=== PATIENT | male | born 1950 | race Caucasian/White ===

== ENCOUNTER 2017-01-23 22:29 | Observation (INO) | payer MEDICARE ==
[2017-01-23] MEDS ORDERED: CIPROFLOXACIN LACTATE/D5W 400 MG/200 ML BAG IVPB ONE (23:02)
--- NOTE | 2017-01-23 23:05 | Emergency Department Record ---
History of Present Illness - General Chief complaint: ENT Stated complaint: RT EAR PAIN/THROBBING Time Seen by Provider: 01/23/17 22:46 Source: Patient Mode of Arrival: Ambulatory Limitations: No limitations - History of Present Illness Initial comments: pt has had ear pain for 3 days which has worsened and has now spread to the face and head. he has swelling and decreased hearing. MD complaint: Ear pain Onset/Timin -: Days(s) Location: R ear Severity scale (1-10): 6 Quality: Aching, Sharp Consistency: Constant Improves with: None Worsens with: Other Associated Symptoms: Discharge from ear - Related Data Home Medications Medication Instructions Recorded Confirmed Last Taken No Home Med [NO HOME MEDS] 01/23/17 01/23/17 Unknown Allergies Allergy/AdvReac Type Severity Reaction Status Date / Time No Known Drug Allergies Allergy Verified 01/23/17 22:40 Travel Screening - Travel/Exposure Within Last 30 Days Have you traveled within the last 30 days?: No Review of Systems Reviewed: No additional complaints except as noted below Constitutional: Reports: As per HPI. Denies: Chills, Fever, Malaise, Night sweats, Weakness, Weight change Eyes: Reports: As per HPI. Denies: Eye discharge, Eye pain, Photophobia, Vision change ENT: Reports: As per HPI. Denies: Congestion, Dental pain, Ear pain, Epistaxis , Hearing loss, Throat pain Respiratory: Reports: As per HPI. Denies: Cough, Dyspnea, Hemoptysis, Stridor, Wheezes Cardiovascular: Reports: As per HPI. Denies: Arrhythmia, Chest pain, Dyspnea on exertion, Edema, Murmurs, Orthopnea, Palpitations, Paroxysmal nocturnal dyspnea, Rheumatic Fever, Syncope Endocrine: Reports: As per HPI. Denies: Fatigue, Heat or cold intolerance, Polydipsia, Polyuria Gastrointestinal: Reports: As per HPI. Denies: Abdominal pain, Constipation, Diarrhea, Hematemesis, Hematochezia, Melena, Nausea, Vomiting Genitourinary: Reports: As per HPI. Denies: Dysuria, Frequency, Hematuria, Incontinence, Retention, Testicular pain, Testicular mass, Urgency Musculoskeletal: Reports: As per HPI. Denies: Arthralgia, Back pain, Gout, Joint swelling, Myalgia, Neck pain Skin: Reports: As per HPI. Denies: Bruising, Change in color, Change in hair/ nails, Lesions, Pruritus, Rash Neurological: Reports: As per HPI. Denies: Abnormal gait, Confusion, Headache, Numbness, Paresthesias, Seizure, Tingling, Tremors, Vertigo, Weakness Psychiatric: Reports: As per HPI. Denies: Anxiety, Auditory hallucinations, Depression, Homicidal thoughts, Suicidal thoughts, Visual hallucinations Hematological/Lymphatic: Reports: As per HPI. Denies: Anemia, Blood Clots, Easy bleeding, Easy bruising, Swollen glands Past Medical History - SOCIAL HISTORY Smoking Status: Never smoker Alcohol Use: None Drug Use: None - RESPIRATORY Hx Respiratory Disorders: No - CARDIOVASCULAR Hx Cardio Disorders: No - NEURO Hx Neuro Disorders: No - GI Hx GI Disorders: No - Hx Genitourinary Disorders: No - ENDOCRINE Hx Endocrine Disorders: No - MUSCULOSKELETAL Hx Musculoskeletal Disorders: No - PSYCH Hx Psych Problems: No - HEMATOLOGY/ONCOLOGY Hx Hematology/Oncology Disorders: No Family Medical History Any Significant Family History?: No Physical Exam - General General Appearance: Alert, Oriented x3, Cooperative, Moderate distress - Head Head exam: Normal inspection - Eye Eye exam: Normal appearance, PERRL, EOMI Pupils: Normal accommodation - ENT ENT exam: Normal exam, Mucous membranes moist, Normal orophraynx, Other (t canal is totally closed w swelling and exquisite tenderness with severe pain and swelling that extends into face) Ear exam: Normal external inspection. negative: External canal tenderness Nasal Exam: Normal inspection. negative: Discharge, Sinus tenderness Mouth exam: Normal external inspection, Tongue normal Teeth exam: Normal inspection. negative: Dental caries Throat exam: Normal inspection. negative: Tonsillar erythema, Tonsillar exudate - Neck Neck exam: Normal inspection, Full ROM. negative: Tenderness - Respiratory Respiratory exam: Normal lung sounds bilaterally. negative: Respiratory distress - Cardiovascular Cardiovascular Exam: Regular rate, Normal rhythm, Normal heart sounds - GI/Abdominal GI/Abdominal exam: Soft, Normal bowel sounds. negative: Tenderness - Rectal Rectal exam: Deferred - exam: Deferred - Extremities Extremities exam: Normal inspection, Full ROM, Normal capillary refill. negative: Tenderness - Back Back exam: Reports: Normal inspection, Full ROM. Denies: Muscle spasm, Rash noted, Tenderness - Neurological Neurological exam: Alert, Normal gait, Oriented X3, Reflexes normal - Psychiatric Psychiatric exam: Normal affect, Normal mood - Skin Skin exam: Dry, Intact, Normal color, Warm Course Vital Signs 01/23/17 22:39 Temperature 100.0 F H Pulse Rate [ 100 H Pulse Ox Probe] Respiratory 20 Rate Blood Pressure 160/102 [Left Arm] Pulse Ox 95 - Reevaluation(s) Reevaluation #1: 01/24/17 01:26 d/w dr nuñez who refused pt. dr [facility] pt preferred to stay here. Medical Decision Making - Lab Data Result diagrams: 01/23/17 23:00 01/23/17 23:00 Disposition Disposition: Admit Clinical Impression: Malignant otitis externa of right ear Qualifiers: Chronicity: acute Qualified Code(s): H60.21 - Malignant otitis externa, right ear Disposition: Still a Patient at [facility] Decision to Admit: Admit from ER Decision to Admit Date: 01/24/17 Decision to Admit Time: 01:36 Forms: Patient Portal Access Quality - Quality Measures Quality Measures: N/A - Blood Pressure Screening Does Patient Have Any of the Following: No Blood Pressure Classification: Hypertensive Reading Systolic Measurement: 160 Diastolic Measurement: 102 Screening for High Blood Pressure: < First Hypertensive BP, F/U Documented > [ G8950] First Hypertensive Follow-up Interventions: Follow-up with rescreen GT 1 day and LT 4 weeks.
[2017-01-23 23:08] LABS: BASO % 0.2 % (0-6); EOS % 0.9 % (0-6); HEMATOCRIT 41.8 % (42.0-52.0); HEMOGLOBIN 14.1 gm/dl (14.0-18.0); LYMPH % 13.6 % (16-45); MEAN CELL VOLUME 94.6 fl (81-97); MEAN CORPUSCULAR HEMOGLOBIN 31.9 pg (27-33); MEAN CORPUSCULAR HGB CONC 33.7 g/dl (32-36); MEAN PLATELET VOLUME 8.9 fl (7.4-10.4); MONO % 8.3 % (0-9); PLATELET COUNT 260 K/uL (130-400); RED BLOOD COUNT 4.42 M/uL (4.40-5.70); RED CELL DISTRIBUTION WIDTH 13.2 % (11.5-14.5); WHITE BLOOD COUNT W/O DIFF 10.9 K/uL (4.2-12.2)
[2017-01-23 23:19] LABS: BLOOD UREA NITROGEN 21 mg/dL (8-23); CREATININE 1.1 mg/dL (0.7-1.2); EST GLOMERULAR FILTRATION RATE > 60 mL/min
[2017-01-23 23:22] LABS: GLUCOSE,RANDOM 140 mg/dL (74-109)
[2017-01-24] MEDS ORDERED: NEOMYCIN/POLYMYXIN B SULF/HC 10ML BTL OT ONE (01:23)
[2017-01-24] MEDS ORDERED: CIPROFLOXACIN HCL/DEXAMETHASONE OTIC SUSP OT ONE ×3 (01:34→10:23)
[2017-01-24] MEDS ORDERED: HYDROMORPHONE HCL 1 MG/ML SYRINGE IVP ONE (01:35)
[2017-01-24] MEDS ORDERED: ONDANSETRON HCL IV 4 MG/2 ML VIAL IVP ONE (01:35)
[2017-01-24] MEDS ORDERED: CIPROFLOXACIN LACTATE/D5W 400 MG/200 ML BAG IVPB SCH ×2 (01:54→11:00)
[2017-01-24] MEDS ORDERED: HYDROMORPHONE HCL 1 MG/ML SYRINGE IVP PRN (01:54)
[2017-01-24] MEDS ORDERED: ONDANSETRON HCL IV 4 MG/2 ML VIAL IVP PRN (01:54)
[2017-01-24] MEDS ORDERED: ACETAMINOPHEN 500 MG TABLET PO PRN (01:54)
--- NOTE | 2017-01-24 09:59 | CT SCAN REPORT ---
EXAM: CT OF THE BRAIN WITHOUT CONTRAST HISTORY: OTALGIA. TECHNIQUE: Sequential axial images were obtained from the foramen magnum to the vertex without contrast administration. FINDINGS: The brain volume is normal. There is no large territorial infarct, hemorrhage, mass effect or midline shift. No extraaxial fluid collection. The orbits, paranasal sinuses, and mastoid air cells are normal. IMPRESSION: NO ACUTE INTRACRANIAL ABNORMALITY IS APPRECIATED. J[facility]BER: [id number] [facility]
--- NOTE | 2017-01-24 10:06 | CT SCAN REPORT ---
EXAM: CT OF THE TEMPORAL BONES WITHOUT CONTRAST HISTORY: RIGHT EAR PAIN. TECHNIQUE: Sequential axial images were obtained through the temporal bones after intravenous administration of 100 ml of Omnipaque 300 contrast material. Sagittal and coronal reformatted images were performed. FINDINGS: There is diffuse soft tissue swelling of the right external auditory canal including the tympanic membrane. Findings are suggestive of acute otitis externa with probable early otitis media. The mastoid air cells appear normal. There is reactive inflammatory change of the right parotid gland with small lymph nodes present. IMPRESSION: FINDINGS SUGGESTIVE OF RIGHT OTITIS EXTERNUS WITH POSSIBLE INVOLVEMENT OF THE MEDIAL COMPARTMENT. THERE IS REACTIVE LYMPHADENOPATHY IN THE RIGHT PAROTID GLAND WITH INFLAMMATORY CHANGE. JOB NUMBER: [id number] [facility]
--- NOTE | 2017-01-24 10:19 | History & Physical ---
History of Present Illness - Date of Service Date of Service for History & Physical: 01/24/17 - History of Present Illness Admitting Diagnosis: malignant otitis externa History of Present Illness: Mr. Irving is a 66 y/o male who comes in with complaint of pain and discharge from his right ear. 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 He says his ear gradually became more tender and he noticed a whitish discharge from his ear. He has not had fever,chills, headache, visual changes or hearing loss. On arrival to the ED the patient had a CT of the head which did not show any structural changes or masses. He was started on IV Cipro and Ciprodex, an ear wick was placed IV dilaudid given and admitted for observation. The ED did reach out the ENT at [facility] who advised outpatient workup for the patient. On examination this morning the patient is awake, alert and says that his ear pain has resolved. On examination of his right ear the inner ear and tympanic membrane is hard to visualize due to swelling. The ear wick is in place and there is no tenderness to palpation. Travel Screening - Travel/Exposure Within Last 30 Days Have you traveled within the last 30 days?: No - Travel/Exposure Within Last Year Have you traveled outside the [place] in the last year?: No - Additonal Travel Details Have you been exposed to anyone with a communicable illness?: No Review of Systems Constitutional: Reports: As per HPI. Denies: Chills, Fever, Malaise, Night sweats, Weakness, Weight change Eyes: Reports: As per HPI. Denies: Eye discharge, Eye pain, Photophobia, Vision change ENT: Reports: As per HPI. Denies: Congestion, Dental pain, Ear pain, Epistaxis , Hearing loss, Throat pain Respiratory: Reports: As per HPI. Denies: Cough, Dyspnea, Hemoptysis, Stridor, Wheezes Cardiovascular: Reports: As per HPI. Denies: Arrhythmia, Chest pain, Dyspnea on exertion, Edema, Murmurs, Orthopnea, Palpitations, Paroxysmal nocturnal dyspnea, Rheumatic Fever, Syncope Endocrine: Reports: As per HPI. Denies: Fatigue, Heat or cold intolerance, Polydipsia, Polyuria Gastrointestinal: Reports: As per HPI. Denies: Abdominal pain, Constipation, Diarrhea, Hematemesis, Hematochezia, Melena, Nausea, Vomiting Genitourinary: Reports: As per HPI. Denies: Dysuria, Frequency, Hematuria, Incontinence, Retention, Testicular pain, Testicular mass, Urgency Musculoskeletal: Reports: As per HPI. Denies: Arthralgia, Back pain, Gout, Joint swelling, Myalgia, Neck pain Skin: Reports: As per HPI. Denies: Bruising, Change in color, Change in hair/ nails, Lesions, Pruritus, Rash Neurological: Reports: As per HPI. Denies: Abnormal gait, Confusion, Headache, Numbness, Paresthesias, Seizure, Tingling, Tremors, Vertigo, Weakness Psychiatric: Reports: As per HPI. Denies: Anxiety, Auditory hallucinations, Depression, Homicidal thoughts, Suicidal thoughts, Visual hallucinations Hematological/Lymphatic: Reports: As per HPI. Denies: Anemia, Blood Clots, Easy bleeding, Easy bruising, Swollen glands Past Medical History - SOCIAL HISTORY Smoking Status: Never smoker Alcohol Use: None Drug Use: None - RESPIRATORY Hx Respiratory Disorders: No - CARDIOVASCULAR Hx Cardio Disorders: No - NEURO Hx Neuro Disorders: No - GI Hx GI Disorders: No - Hx Genitourinary Disorders: No - ENDOCRINE Hx Endocrine Disorders: No - MUSCULOSKELETAL Hx Musculoskeletal Disorders: No - PSYCH Hx Psych Problems: No - HEMATOLOGY/ONCOLOGY Hx Hematology/Oncology Disorders: No Family Medical History Any Significant Family History?: No H&P Meds/Allergies - Allergies Allergies: Allergies Allergy/AdvReac Type Severity Reaction Status Date / Time No Known Drug Allergies Allergy Verified 01/23/17 22:40 - Home Medications Previous Rx's Medication Instructions Recorded Acetaminophen [Tylenol 500Mg Tab] 1,000 mg PO Q6H PRN #10 tablet 01/24/17 Ciprofloxacin/Ciprofloxa HCl 500 mg PO Q12HR #12 tbmp.24hr 01/24/17 [Ciprofloxacin ER 500 mg Tablet] - Active Medications Active Medications: Current Medications Acetaminophen (Tylenol 500mg Tab) 1,000 mg PO Q6H PRN PRN Reason: PAIN/TEMP Hydromorphone HCl (Dilaudid) 1 mg IVP Q4H PRN PRN Reason: Pain - Moderate (5-7) Ciprofloxacin Lactate (Cipro) 400 mg in 200 mls @ 200 mls/hr IVPB 1100,2300 LIBBY Stop: 01/29/17 11:01 Ondansetron HCl (Zofran) 4 mg IVP Q4H PRN PRN Reason: NAUSEA Physical Exam - Vital Signs Vital Signs: Vital Signs - Last 24 Hrs Pulse Resp 01/24/17 02:33 85 18 - General General Appearance: Alert, Oriented x3, Cooperative, Moderate distress Limitations: No limitations - Head Head exam: Normal inspection - Eye Eye exam: Normal appearance, PERRL, EOMI Pupils: Normal accommodation - ENT ENT exam: Normal exam, Mucous membranes moist, Normal orophraynx, Other (t canal is totally closed w swelling and exquisite tenderness with severe pain and swelling that extends into face) Ear exam: Normal external inspection. negative: External canal tenderness Nasal Exam: Normal inspection. negative: Discharge, Sinus tenderness Mouth exam: Normal external inspection, Tongue normal Teeth exam: Normal inspection. negative: Dental caries Throat exam: Normal inspection. negative: Tonsillar erythema, Tonsillar exudate - Neck Neck exam: Normal inspection, Full ROM. negative: Tenderness - Respiratory Respiratory exam: Normal lung sounds bilaterally. negative: Respiratory distress - Cardiovascular Cardiovascular Exam: Regular rate, Normal rhythm, Normal heart sounds - GI/Abdominal GI/Abdominal exam: Soft, Normal bowel sounds. negative: Tenderness - Rectal Rectal exam: Deferred - exam: Deferred - Extremities Extremities exam: Normal inspection, Full ROM, Normal capillary refill. negative: Tenderness - Back Back exam: Reports: Normal inspection, Full ROM. Denies: Muscle spasm, Rash noted, Tenderness - Neurological Neurological exam: Alert, Normal gait, Oriented X3, Reflexes normal - Psychiatric Psychiatric exam: Normal affect, Normal mood - Skin Skin exam: Dry, Intact, Normal color, Warm Results - Labs Result Diagrams: 01/23/17 23:00 01/23/17 23:00 VTE H&P Assessment - Risk for VTE Risk for VTE: No Risk Level: Very Low Risk Assessment Date: 01/24/17 Risk Assessment Time: 14:04 VTE Orders Placed or Will Be Placed: No VTE Reason for No Prophylaxis: Not Indicated Plan - Detailed Diagnosis and Plan (1) Acute otitis externa of right ear Status: Acute Base Code: H60.501 - UNSPECIFIED ACUTE NONINFECTIVE OTITIS EXTERNA, RIGHT EAR Comment: - Patient presented with 3 day history of right ear pain and drainage. Denies fever/chills/headache/n/v. Hearing intact bilaterally - WBCs 10.9, Ct head w/o contrast negative for mass or inner ear structural changes. - pt started on IV Cipro and an ear wick inserted for administration of Ciprodex drops. - Case was discussed with ENT at [facility] and they did not see an immediate need for surgical intervention. (2) Full code status Status: Acute Base Code: Z78.9 - OTHER SPECIFIED HEALTH STATUS - Disposition D/C this morning with PO and topical abx - f/u in the clinic in one week
--- NOTE | 2017-01-24 10:23 | Discharge Summary ---
Providers Discharge Summary Date: 01/24/17 Date of admission: 01/24/17 02:01 Attending physician: Evan Fuentes Physical Exam - Vital Signs Vital Signs: Vital Signs - Last 24 Hrs Pulse Resp 01/24/17 02:33 85 18 - General General Appearance: Alert, Oriented x3, Cooperative, Moderate distress Limitations: No limitations - Head Head exam: Other (there is noted swelling near the right mastoid and temporal area. The area is non-tender to palpation ) - Eye Eye exam: Normal appearance, PERRL, EOMI Pupils: Normal accommodation - ENT ENT exam: Normal exam, Mucous membranes moist, Normal orophraynx, Other (t canal is totally closed w swelling and exquisite tenderness with severe pain and swelling that extends into face) Ear exam: Normal external inspection. negative: External canal tenderness Nasal Exam: Normal inspection. negative: Discharge, Sinus tenderness Mouth exam: Normal external inspection, Tongue normal Teeth exam: Normal inspection. negative: Dental caries Throat exam: Normal inspection. negative: Tonsillar erythema, Tonsillar exudate - Neck Neck exam: Normal inspection, Full ROM. negative: Tenderness - Respiratory Respiratory exam: Normal lung sounds bilaterally. negative: Respiratory distress - Cardiovascular Cardiovascular Exam: Regular rate, Normal rhythm, Normal heart sounds - GI/Abdominal GI/Abdominal exam: Soft, Normal bowel sounds. negative: Tenderness - Rectal Rectal exam: Deferred - exam: Deferred - Extremities Extremities exam: Normal inspection, Full ROM, Normal capillary refill. negative: Tenderness - Back Back exam: Reports: Normal inspection, Full ROM. Denies: Muscle spasm, Rash noted, Tenderness - Neurological Neurological exam: Alert, Normal gait, Oriented X3, Reflexes normal - Psychiatric Psychiatric exam: Normal affect, Normal mood - Skin Skin exam: Dry, Intact, Normal color, Warm Hospitalization - Hospitalization Admission Diagnosis: malignant otitis externa - Problem List/Discharge Diagnosis (1) Acute otitis externa of right ear Status: Acute Base Code: H60.501 - UNSPECIFIED ACUTE NONINFECTIVE OTITIS EXTERNA, RIGHT EAR Comment: - Patient presented with 3 day history of right ear pain and drainage. Denies fever/chills/headache/n/v. Hearing intact bilaterally - WBCs 10.9, Ct head w/o contrast negative for mass or inner ear structural changes. - pt started on IV Cipro and an ear wick inserted for administration of Ciprodex drops. - Case was discussed with ENT at [facility] and they did not see an immediate need for surgical intervention. - Disposition D/C today with outpatient followup - Hospitalization Course Disposition: Home, Self-Care Condition at Discharge: (1) Good Discharge Medications - Discharge Medications Prescriptions: Ciprofloxacin/Ciprofloxa HCl [Ciprofloxacin ER 500 mg Tablet] 500 mg PO Q12HR # 12 tbmp.24hr Acetaminophen [Tylenol 500Mg Tab] 1,000 mg PO Q6H PRN #10 tablet PRN Reason: Pain/Temp Home Medications: Ambulatory Orders Acetaminophen [Tylenol 500Mg Tab] 1,000 mg PO Q6H PRN #10 tablet 01/24/17 [Last Taken Unknown] Ciprofloxacin/Ciprofloxa HCl [Ciprofloxacin ER 500 mg Tablet] 500 mg PO Q12HR # 12 tbmp.24hr 01/24/17 [Last Taken Unknown] Discharge Plan - Discharge Instructions Activity at Discharge: Resume Usual Activities As Tolerated Diet at Discharge: Regular Diet Instructions: Ciprofloxacin (Into the ear), Otitis Externa (DC) Additional Instructions: - Patient to apply Ciprodex to ear wick twice daily for the next 5 days. - Cipro 500mg Q12H for another 6 days to complete a 7 day course. - f/u with [facility] next week and if no resolution hen ENT referral. - Advised to wear ear muffs and stop using ear plugs at work. Quality Measures - Quality Measures Quality Measures: Advance Directives, Documentation of Current Medications in Medical Record, Elder Maltreatment Screen and Follow-Up Plan, Screening for High Blood Pressure and F/U Documented - Current Medications Quality Measure: Measure #130: Documentation of Current Medications Documentation of Current Medications: <Current Medications Documented/Reviewed> [G8427] - Blood Pressure Screening Quality Measure: Screening for High Blood Pressure and Follow-Up Documented Does Patient Have Any of the Following: No Blood Pressure Classification: Pre-Hypertensive BP Reading Systolic Measurement: 130 Diastolic Measurement: 76 Screening for High Blood Pressure: < Normal BP, F/U Not Required > [G8783] - Advance Directives Quality Measure: Measure #47: Care Plan Advance Directives Established: No Advance Directives Information Provided To Patient: No Advance Directives on File: No Living Will: No Power of Felt Hat Pouncing Operator Hand: No Advance Care Planning: Not Discussed or Documented [[id number]] - Elder Abuse Suspicion Index Screening: Elder Abuse Suspicion Index Screening Rely on people for bathing, dressing, shopping, banking, etc: No Prevented from getting food, clothes, medication, etc: No Made to feel shamed or threatened by someone: No Forced to sign papers or use money against will: No Feel afraid, touched in ways not wanted or hurt physically: No Poor eye contact, withdrawn, malnourished, cuts or bruises: No Screening Result: Negative result EASI Reference Information: Yeison MOJICA, Elinor C, Santos Magdaleno, Ashley Ford.Development and validation of a tool to assist physicians identification of elder abuse: The Elder Abuse Suspicion Index (EASI ). Journal of Elder Abuse and Neglect, 2008; 20 (3): 276-300. - Elder Maltreatment Screen Quality Measures: Elder Maltreatment Screen and Follow-Up Plan Elder Maltreatment Screen: <Negative, No Follow-Up Plan Required> [G8734]
== END 2017-01-24 11:30 | disposition home or self-care (01) ==
LOC: ER 22:29 → MEDSURG 01-24 02:01
PROVIDERS: ADMIT Internal Medicine; ATTEND Internal Medicine
DX: H60.501 Unspecified acute noninfective otitis externa, right ear (principal)
CPT/HCPCS: 70450; 70480; 80048; 85025; 96365; 96374; 96375; 99220; 99285; J1170; J2405